=== PATIENT | male | born 1960 | race Caucasian/White ===

== ENCOUNTER 2019-05-27 20:11 | Inpatient (IN) ==
[2019-05-27] MEDS ORDERED: ZOFRAN IV ONE (20:24)
[2019-05-27] MEDS ORDERED: PROTONIX 80 MG in NS 80 ML IV SCH (20:35)
[2019-05-27] MEDS ORDERED: SANDOSTATIN IV ONE (20:38)
[2019-05-27] MEDS ORDERED: VITAMIN K 10 MG in NS 50 ML IV ONE (20:45)
[2019-05-27 20:47] LABS: BASO# 0.04 X1000 (0.0-0.2); BASO% 0.6 % (0.0-0.8); EOS# 0.22 X1000 (0.0-0.7); EOS% 3.1 % (0.0-10.0); HEMATOCRIT 48.7 % (42.0-52.0); HEMOGLOBIN 16.9 g/dL (14.0-18.0); IMM GRAN# 0.03 X1000 (0.0-0.04); IMM GRAN% 0.4 % (0.0-0.5); LYMPH# 2.06 X1000 (1.2-3.4); LYMPH% 28.7 % (20.5-51.1); MCH 32.3 PG (27-31); MCHC 34.7 g/dL (33-37); MCV 93.1 FL (81-99); MPV 11.3 FL (7.4-10.4); NEUT# 4.32 X1000 (1.4-6.5); NEUT% 60.2 % (42.2-75.2); PLT 108 X1000 (130-400); RBC 5.23 XMIL (4.7-6.1); RDW 14.3 % (11.5-14.5); WBC 7.17 X1000 (4.8-10.8)
--- NOTE | 2019-05-27 20:55 | PROVIDER DOCUMENTATION ---
HPI-General Adult - General Chief Complaint: GI Bleed Stated Complaint: GI Bleed Time Seen by Provider: 05/27/19 20:30 Source: patient, RN/MD, EMS Allergies/Adverse Reactions: Patient Allergies Allergy/AdvReac Type Severity Reaction Status Date / Time No Known Allergies Allergy Verified 05/27/19 20:37 Home Medications: Home Medication List Medication Instructions Recorded Confirmed Last Taken Type Amitriptyline [Elavil] 25 mg PO QPM 11/21/17 05/27/19 05/27/19 History Cholecalciferol (Vitamin D3) 1 cap PO DAILY 11/21/17 05/27/19 05/27/19 History [Vitamin D3] Gabapentin 400 mg PO TID 11/21/17 05/27/19 05/27/19 History Hydrocodone/Acetaminophen [[place] 1 tab PO Q6HR 11/21/17 05/27/19 05/27/19 History 10-325 Tablet] Insulin Glargine [Lantus] 80 units SQ QAM 11/21/17 05/27/19 05/27/19 History Magnesium 500 mg PO BID 11/21/17 05/27/19 05/27/19 History Metformin [Glucophage] 1,000 mg PO BID 11/21/17 05/27/19 05/27/19 History Metoclopramide [Reglan] 5 mg PO TID 11/21/17 05/27/19 05/27/19 History Multivitamin/Iron/Folic Acid 1 tab PO DAILY 11/21/17 05/27/19 05/27/19 History [Centrum Adults Tablet] Nadolol 20 mg PO QAM 11/21/17 05/27/19 05/27/19 History Omeprazole [Prilosec] 40 mg PO QAM 11/21/17 05/27/19 05/27/19 History Spironolactone [Aldactone] 25 mg PO QHS 11/21/17 05/27/19 05/27/19 History Albuterol 2.5MG/Ipratrop 0.5MG 3 ml INH RTQ4H #180 neb 11/23/17 05/27/19 05/27/19 Rx [Duoneb (A & A)] Furosemide [Lasix] 20 mg PO DAILY #30 tab 11/23/17 05/27/19 05/27/19 Rx Metoprolol [Lopressor] 25 mg PO Q12H tablet 11/23/17 05/27/19 05/27/19 Rx Baclofen 10 mg PO TID 03/08/18 05/27/19 05/27/19 History Ondansetron Odt [Zofran 4 mg Odt] 4 mg PO Q6H PRN PRN #20 tab 04/22/19 05/27/19 05/27/19 Rx - History of Present Illness -Gen Adult Nature of Presenting Problems: This is a 59yo male with PMH of HERNANDEZ, GI bleeding, esophageal varices who presents with CC of vomiting up blood. The patient reports approximately 30- 35min he vomited up pure blood. The patient reports that he took his meds and laid down and then started to vomit up blood. The patient reports abdominal pain as well as nausea. He denies chest pain. He denies being on a blood thinner or taking ibuprofen. Review of Systems - Adult - REVIEW OF SYSTEMS - ADULT Constitutional: reports: no symptoms reported. denies: fever Eyes: reports: no symptoms reported Ears, Nose, Mouth & Throat: reports: no symptoms reported Cardiovascular: reports: no symptoms reported. denies: chest pain Respiratory: reports: no symptoms reported Gastrointestinal: reports: abdominal pain, hematemesis, nausea, vomiting Genitourinary: reports: no symptoms reported Musculoskeletal: reports: no symptoms reported Integumentary: reports: no symptoms reported Neurological: reports: no symptoms reported Psychiatric: reports: no symptoms reported Endocrine: reports: no symptoms reported Hematologic/Lymphatic: reports: other (hx of GI bleed) Allergic/Immunologic: reports: no symptoms reported Past History - Adult - PAST MEDICAL HISTORY-ADULT Review of Records: reports: Old Records Reviewed Major Childhood Illnesses: reports: denies history Cardiovascular: reports: HTN, hyperlipidemia. denies: cardiac disease, CAD, CHF Respiratory: reports: COPD, sleep apnea Gastrointestinal: reports: hepatitis (nonalcoholic), other (cirrhosis of liver) Obstetrical/Gynecological: reports: denies history Genitourinary: reports: kidney stones Musculoskeletal: reports: denies history Neurological: reports: TIA Endocrine/Immune: reports: Diabetes Other Conditions: reports: denies history - PRIOR SURGERIES/PROCEDURES Surgical/Procedure History: reports: appendectomy, cholecystectomy, tonsillectomy, other (sleep apnea, carpal tunnel) - PRIOR HOSPITALIZATIONS Prior Hospitalizations: reports: for other non-related - IMMUNIZATION STATUS Childhood Immunizations: See Nurse Assessment Flu Vaccine: See Nurse Assessment - FAMILY HISTORY Family History: reviewed, not pertinent Physical Exam-General - CONSTITUTIONAL General Appearance: severe distress, lethargic, slow to respond - EYES Eyes: negative: conjuctival exudate, photophobia, scleral icterus - HEAD, EARS, NOSE, MOUTH & THROAT HENMT: normocephalic/atraumatic, moist mucous membranes - RESPIRATORY Respiratory: normal breath sounds - CARDIOVASCULAR Cardiovascular: no edema, tachycardia - GASTROINTESTINAL (ABDOMEN) Abdominal Exam: soft, tenderness (epigastric) - SKIN Integumentary: normal color - NEUROLOGIC Neurologic: grossly normal - PSYCHIATRIC Psych/Mental Status: other (blunted and anxious.) Progress - PLAN OF CARE/RESULTS Progress/Plan/Lab Results: Vital Signs - 8 hr 05/27/19 20:16 Temperature 97.9 F Pulse Rate 127 H Respiratory Rate 24 Blood Pressure 155/93 O2 Sat by Pulse Oximetry 90 L 05/27/19 20:23 Gastric Occult Blood - Final Emesis Laboratory Results - last 24 hr 05/27/19 20:35 WBC 7.17 RBC 5.23 Hgb 16.9 Hct 48.7 MCV 93.1 MCH 32.3 H MCHC 34.7 RDW Std Deviation 14.3 Plt Count 108 L MPV 11.3 H Immature Gran % (Auto) 0.4 Neut % (Auto) 60.2 Lymph % (Auto) 28.7 [place] % (Auto) 7.0 Eos % (Auto) 3.1 Baso % (Auto) 0.6 Immature Gran # (Auto) 0.03 Neut # (Auto) 4.32 Lymph # (Auto) 2.06 [place] # (Auto) 0.50 Eos # (Auto) 0.22 Baso # (Auto) 0.04 Orders Category Date Time Status Saline Loc DIRECTED Care 05/27/19 20:46 Ordered NPO Diet 05/27/19 20:46 Ordered AMYLASE [CHEM] Stat Lab 05/27/19 20:46 Uncollected CBC WITH DIFF [HEME] Stat Lab 05/27/19 20:42 Ordered CBC WITH ELECTRONIC DIFF [HEME] Stat Lab 05/27/19 20:46 Uncollected COMPREHENSIVE METABOLIC PANEL [CHEM] Stat Lab 05/27/19 20:42 Ordered COMPREHENSIVE METABOLIC PANEL [CHEM] Stat Lab 05/27/19 20:46 Uncollected LACTATE, PLASMA [CHEM] Stat Lab 05/27/19 20:46 Uncollected LIPASE [CHEM] Stat Lab 05/27/19 20:46 Uncollected OCCULT BLOOD NON-FECES Stat Lab 05/27/19 20:23 Completed PRO B-NATRIURETIC PEPTIDE Stat Lab 05/27/19 20:42 Ordered PROTIME WITH INR [COAG] Stat Lab 05/27/19 20:47 Uncollected PTT [COAG] Stat Lab 05/27/19 20:47 Uncollected TYPE & SCREEN [BBK] Stat Lab 05/27/19 20:35 Received 0.9% Sodium Chloride Inj [Ns] 80 ml Med 05/27/19 20:35 Ordered Pantoprazole [Protonix] 80 mg IV 10 mls/hr 0.9% Sodium Chloride Inj [Ns] 80 ml Med 05/27/19 21:00 Active Pantoprazole [Protonix] 80 mg IV 10 mls/hr Dextrose 5%-Water Inj [D5w] 100 ml Med 05/27/19 20:45 Ordered Octreotide Acetate [Sandostatin] 500 microgm IV 10 mls/hr Dextrose 5%-Water Inj [D5w] 100 ml Med 05/27/19 21:00 Active Octreotide Acetate [Sandostatin] 500 microgm IV 10 mls/hr Octreotide Acetate [Sandostatin] Med 05/27/19 20:38 Discontinued 50 microgm IV NOW ONE Ondansetron [Zofran] Med 05/27/19 20:24 Discontinued 4 mg IV NOW ONE Phytonadione [Vitamin K] 10 mg Med 05/27/19 20:45 Ordered 0.9% Sodium Chloride Inj [Ns] 50 ml IV NOW Result Diagrams: 05/31/19 07:34 05/31/19 07:34 - REASSESSMENT Reassessment #1 Status: other (Discussed case with Dr. Zamorano with the GI team. Given persistant bloody vomit will plan for EGD this evening. BP still stable in the 140s. EBL about 1.5L total, type and cross completed. Discussed with warehouse incentive selector who is mobilizing EGD team. Discussed case with Dr. Woodson hospitalist who has accepted the patient for ICU care.) Departure - Departure Date of Disposition Decision: 05/27/19 Time of Disposition Decision: 21:25 DIAGNOSIS: Upper GI bleed, Tachycardia, Varices of esophagus determined by endoscopy Disposition: ADMITTED INPATIENT 09 Certified Medical Emergency: Emergent Condition: Serious - Critical Care Note This patient required my direct & personal management of CC.: Yes Attestation - Physician/ JENSEN Attestation Patient care was provided by Advanced Practice Provider:: No The physician spent face to face time with patient:: Yes Advanced Practice Provider documentation review:: Supervising physician onsite and consulted in the evaluation and care of this patient. The physician did have a face to face encounter with the patient.
[2019-05-27] MEDS ORDERED: COMPAZINE IV ONE (20:58)
[2019-05-27] MEDS ORDERED: SANDOSTATIN 500 MICROGM in D5W 100 ML IV ONE (21:00)
[2019-05-27] MEDS ORDERED: PROTONIX 80 MG in NS 80 ML IV ONE (21:00)
[2019-05-27 21:02] LABS: INR 1.01; PROTIME 13.4 Seconds (11.0-16.0)
[2019-05-27 21:03] LABS: PTT 25.7 Seconds (22.3-41.8)
[2019-05-27] MEDS ORDERED: ROCEPHIN 1 GM in NS 50 ML IV ONE (21:03)
[2019-05-27 21:11] LABS: AGAP 15; ALBUMIN 3.4 g/dL (3.5-5.0); ALKALINE PHOSPHATASE 76 U/L (32-122); BUN 12 mg/dL (8-22); CALCIUM 9.7 mg/dL (8.8-10.2); CHLORIDE 102 mmol/L (98-107); COSMO 291; CREATININE 0.7 mg/dL (0.7-1.2); ESTIMATED GFR > 60; GLUCOSE 313 mg/dL (70-104); GOT 55 U/L (10-34); GPT 41 U/L (10-44); POTASSIUM 4.6 mmol/L (3.5-5.1); SODIUM 140 mmol/L (136-145); TCO2 23 mmol/L (25-35); TOTAL BILIRUBIN 0.81 mg/dL (0.20-1.00); TOTAL PROTEIN 6.9 g/dL (6.3-8.3)
[2019-05-27 21:16] LABS: AMYLASE 34 U/L (20-200); LIPASE 27 U/L (13-60)
--- NOTE | 2019-05-27 21:21 | EKG Report ---
Test Performed on : 05/27/2019 8:17:42 PM Test Reason : GI BLEED Blood Pressure : / mmHG Vent. Rate : 123 BPM Atrial Rate : 123 BPM P-R Int : 140 ms QRS Dur : 078 ms QT Int : 322 ms P-R-T Axes : 049 067 054 degrees QTc Int : 460 ms Sinus tachycardia. Otherwise normal ECG When compared with ECG of 22-APR-2019 18:44, (Unconfirmed) Vent. rate has increased BY 41 BPM Unconfirmed Result
[2019-05-27] MEDS ORDERED: AMIDATE ONE (22:03)
[2019-05-27] MEDS ORDERED: XYLOCAINE-MPF 2% ONE (22:06)
[2019-05-27] MEDS ORDERED: QUELICIN (DOSE) ONE (22:06)
[2019-05-27] MEDS ORDERED: ZEMURON ONE (22:30)
--- NOTE | 2019-05-27 22:33 | HISTORY AND PHYSICAL ---
PRIMARY CARE PHYSICIAN: Aram Stock MD CHIEF COMPLAINT: Throwing up blood. HISTORY OF PRESENTING ILLNESS: This is a 59-year-old male with a history of HERNANDEZ cirrhosis, diabetes mellitus type 2, hypertension who had presented to emergency department with 1-day history of having gross hematemesis. The patient states he had multiple bouts and was not feeling well. He was evaluated in the emergency department. He continued to have hematemesis. His case was discussed with GI, and the patient apparently will undergo an emergent endoscopy. At the time of my examination, patient denied any fever, chills, chest pain, shortness of breath but complained of not feeling well. PAST MEDICAL HISTORY: Includes HERNANDEZ cirrhosis, diabetes mellitus type 2, esophageal varices, hypertension, sleep apnea. PAST SURGICAL HISTORY: Cholecystectomy, carpal tunnel surgery, tonsillectomy. ALLERGIES: No known drug allergies. CURRENT MEDICATIONS: Include DuoNebs q.4 hours, Elavil 25 mg p.o. q. p.m., baclofen 10 mg p.o. t.i.d., Lasix 20 mg p.o. daily, gabapentin 400 one p.o. t.i.d., [place] 10/325 one p.o. q.6 hours, Lantus 80 units subcutaneous q.a.m., metformin 1000 mg p.o. b.i.d., Reglan 5 mg p.o. t.i.d., metoprolol 25 mg p.o. q.12 hours, omeprazole 40 mg p.o. q.a.m., spironolactone 25 mg p.o. at bedtime. SOCIAL HISTORY: He is a former smoker. Denies any history of alcohol or illicit drug use. FAMILY HISTORY: No history of coronary disease. REVIEW OF SYSTEMS: Fourteen-point review of systems listed as in HPI. Other systems negative. PHYSICAL EXAMINATION: GENERAL: Cooperative, friendly obese male. He is without any respiratory distress. VITAL SIGNS: Temperature 97.9 degrees, pulse 127, respirations 24, blood pressure 155/93. HEENT: Atraumatic, normocephalic. Extraocular movements intact. PERRLA. NECK: No masses. CHEST: Clear to auscultation. CARDIOVASCULAR: Regular rate and rhythm. ABDOMEN: Soft, obese, positive bowel sounds. EXTREMITIES: Trace edema. NEUROLOGIC: He is awake, alert, oriented x3. GENITOURINARY: No bladder distention. SKIN: Warm. LABORATORIES AND STUDIES: WBC 7.17, hemoglobin 16.9, hematocrit 48.7, platelets 108,000. Sodium 140, potassium 4.6, chloride 102, CO2 23, BUN is 12, creatinine 0.7, glucose is 313. ASSESSMENT: This is a 59-year-old obese male with a history of non-alcoholic steatohepatitis cirrhosis, esophageal varices, diabetes mellitus type 2, and hypertension who presented to the emergency department with a 1-day history of throwing up of gross blood. He apparently continued to have episodes of hematemesis in the ER. His case was discussed with Gastroenterology and subsequently underwent emergent endoscopy. 1. Upper gastrointestinal bleed. 2. Non-alcoholic steatohepatitis cirrhosis. 3. Suspected esophageal varices. 4. Diabetes mellitus type 2. 5. Hypertension. PLAN: 1. We will admit patient to ICU. 2. We will keep patient n.p.o. 3. GI was already consulted. 4. We will continue patient on a pantoprazole drip and also Sandostatin. 5. Continue with IV fluids and type and cross 2 units of packed red blood cells. 6. We will monitor blood glucose and continue patient on sliding scale insulin regimen. 7. Monitor blood pressure. Resume antihypertensive agents. 8. We will put patient on DVT prophylaxis with SCD. 9. The patient's condition is guarded. 10. We will continue to follow and reassess. Make further recommendations based on patient's clinical course. cc: Brendon Woodson MD MTDD
[2019-05-27] MEDS ORDERED: SODIUM CHLORIDE 0.9% 10 ML ONE (22:34)
[2019-05-27] MEDS ORDERED: NEO-SYNEPHRINE ONE (22:34)
[2019-05-27] MEDS ORDERED: ROBINUL ONE (22:40)
[2019-05-27] MEDS ORDERED: REGLAN ONE (22:41)
[2019-05-27] MEDS ORDERED: BRIDION ONE (22:50)
[2019-05-27] MEDS ORDERED: PHENERGAN ONE (23:14)
[2019-05-27] MEDS ORDERED: DILAUDID ONE (23:56)
[2019-05-28] MEDS ORDERED: SODIUM CHLORIDE 0.9% INJ PRN (00:46)
[2019-05-28] MEDS ORDERED: PHENERGAN IV PRN (00:46)
[2019-05-28] MEDS: NS 1,000 ML IV SCH ×4 (00:51→16:59)
[2019-05-28 01:55] LABS: HEMATOCRIT 47.7 % (42.0-52.0); HEMOGLOBIN 15.9 g/dL (14.0-18.0); MCH 31.6 PG (27-31); MCHC 33.3 g/dL (33-37); MCV 94.8 FL (81-99); MPV 10.9 FL (7.4-10.4); RBC 5.03 XMIL (4.7-6.1); RDW 14.2 % (11.5-14.5); WBC 8.32 X1000 (4.8-10.8)
[2019-05-28] MEDS: REGLAN IV SCH ×4 (03:45→23:00)
[2019-05-28] MEDS: MORPHINE IV PRN ×6 (03:45→23:26)
[2019-05-28 04:44] LABS: INR 1.09; PROTIME 14.3 Seconds (11.0-16.0)
[2019-05-28 04:45] LABS: BASO# 0.03 X1000 (0.0-0.2); BASO% 0.3 % (0.0-0.8); EOS# 0.01 X1000 (0.0-0.7); EOS% 0.1 % (0.0-10.0); HEMATOCRIT 46.2 % (42.0-52.0); HEMOGLOBIN 15.7 g/dL (14.0-18.0); IMM GRAN# 0.02 X1000 (0.0-0.04); IMM GRAN% 0.2 % (0.0-0.5); LYMPH# 0.99 X1000 (1.2-3.4); LYMPH% 11.3 % (20.5-51.1); MCH 32.2 PG (27-31); MCV 94.9 FL (81-99); MONO# 0.19 X1000 (0.11-0.59); MONO% 2.2 % (1.7-9.3); MPV 12.1 FL (7.4-10.4); NEUT# 7.51 X1000 (1.4-6.5); NEUT% 85.9 % (42.2-75.2); PLT 84 X1000 (130-400); PTT 34.8 Seconds (22.3-41.8); RBC 4.87 XMIL (4.7-6.1); WBC 8.75 X1000 (4.8-10.8)
[2019-05-28 05:10] LABS: AGAP 12; ALB/GLOB RATIO 0.9; ALBUMIN 3.3 g/dL (3.5-5.0); ALKALINE PHOSPHATASE 64 U/L (32-122); BUN 17 mg/dL (8-22); CALCIUM 8.9 mg/dL (8.8-10.2); CHLORIDE 101 mmol/L (98-107); COSMO 286; CREATININE 0.8 mg/dL (0.7-1.2); ESTIMATED GFR > 60; GLUCOSE 354 mg/dL (70-104); GOT 60 U/L (10-34); GPT 44 U/L (10-44); SODIUM 135 mmol/L (136-145); TCO2 22 mmol/L (25-35); TOTAL PROTEIN 6.8 g/dL (6.3-8.3)
[2019-05-28] MEDS: SANDOSTATIN 500 MICROGM in D5W 100 ML IV SCH ×3 (06:03→15:36)
[2019-05-28] MEDS: HUMULIN R SUBQ SCH ×4 (06:03→21:23)
[2019-05-28] MEDS ORDERED: PROTONIX 80 MG in NS 80 ML IV SCH (07:40)
--- NOTE | 2019-05-28 11:16 | ENDOSCOPY OPERATIVE NOTE ---
[facility] ENDOSCOPY OPERATIVE NOTE , PATIENT: Speedy Friedman ADMISSION DATE: MR#: [id number] : 1960 ACCT #: EGD PROCEDURE REPORT PROCEDURE DATE: 05/27/2019 SURGEON: Corey Zamorano MD STATUS: inpatient READING ASSISTANT: Jose Eduardo Doan and Rayne Graham PREOPERATIVE DIAGNOSIS: The patient is a 59 yr old male here for an EGD due to Hematemesis, HERNANDEZ Cir rhosis, Diabetes, Obesity. PROCEDURE PERFORMED: EGD w/ band ligation of varices MEDICATIONS: Per Anesthesia TOPICAL ANESTHETIC: none CONSENT: The patient understands the risks and benefits of the procedure and understands that these r isks include, but are not limited to: sedation, allergic reaction, infection, perforation and/or bleeding. Alternative means of evaluation and treatment include, among others: physical exam, x-rays, and/or surgical intervention. The patient elects to proceed with this endoscopic procedure. HISORY AND PHYSICAL: 05/27/2019 DESCRIPTION OF PROCEDURE: During intra-op preparation period all mechanical and medical equipment was checked for proper function. Hand hygiene and appropriate measures for infection prevention was taken. After the risks, benefits and alternatives of the procedure were thoroughly explained, Informed consent was verified, confirmed and timeout was successfully executed by the treatment team. The patient was anesthetized with topical anesthesia and the NF53-q22 ([id number]) endoscope was introduced through the mouth and advanced to the second portion of the duoden um. Retroflexion was performed in the stomach and revealed Food and blood clots in the gastric fundus. The gastroscop e was then slowly withdrawn and removed. ESOPHAGUS: There were 4 columns of medium sized varices in the lower third of the esophagus and middl e third esophagus. There was evidence of a red marielos sign. Complete hemostasis was achieved by placing. Z line at 42 c ms. STOMACH: Food and blood clots in the stomach-large amount-partially evacuated. DUODENUM: The duodenal mucosa showed no abnormalities in the duodenal bulb, 2nd part duodenum, and 1s t part duodenum. SPECIMENS REMOVED: No ADVERSE EVENTS: There were no complications. POSTOPERATIVE DIAGNOSIS: 1. There were 4 columns of medium sized esophageal varices and varices in the lower third of the esophagus and middle third esophagus; Complete hemostasis was achieved by placing 2. Z line at 42 cms 3. Food and blood clots in the stomach-large amount-partially evacuated 4. The duodenal mucosa showed no abnormalities in the duodenal bulb, 2nd part duodenum, and 1st part duodenum RECOMMENDATIONS: Protonix drip for 72 hours Octreotide drip for 72 hours Watch CBC and Transfuse 1unit PRBC if Hb<7g/dl Reglan 10 mg IV Q 6 hours for Gastroparesis and hold for side effects like Tardive dyskinesia Continue IV Fluids NPO for now REPEAT EXAM: Return in 6 weeks for EGD. for variceal banding Corey Zamorano MD eSigned: Corey Zamorano MD 05/27/2019 10:46 PM cc: PATIENT NAME: Speedy Friedman MR#: [id number]
[2019-05-28 12:41] LABS: HEMATOCRIT 43.1 % (42.0-52.0); MCH 31.2 PG (27-31); MCHC 32.5 g/dL (33-37); MPV 11.1 FL (7.4-10.4); RBC 4.49 XMIL (4.7-6.1); RDW 14.2 % (11.5-14.5); WBC 8.78 X1000 (4.8-10.8)
--- NOTE | 2019-05-28 17:44 | PROGRESS NOTE ---
DATE: 05/28/2019 Mr. Friedman admitted with hematemesis. Patient had history of cirrhosis of the liver due to nonalcoholic steatohepatitis with esophageal varices. The patient underwent EGD and band ligation of the varices. It did clinically look like it did stop his bleeding. Patient admitted to ICU. The patient is doing better. He denied any chest pain or palpitations. No fever or chills. The patient does have cough with scanty sputum production. Patient does have pain in the knee, at times in the lower back. His past medical history and medication noted. Admission history physical and operative note reviewed. OBJECTIVE: Vital Signs: Noted. Blood pressure reviewed. Neck: Supple. No JVD. Lungs: Bibasilar crepitations. Heart: S1 and S2 heard. Abdomen: Soft, globular. Bowel sounds present. Extremities: No cyanosis, clubbing. No acute DVT. 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 LABORATORY DATA: Patient's admission lab data noted. Repeat hemoglobin 14, hematocrit 43.1, WBC count 8.78, platelet count was 79,000. PT/INR 1.09, PTT was 34.8. Electrolytes result reviewed. PROBLEMS: Include 1. Upper gastrointestinal bleed due to variceal bleed status post band ligation. 2. Cirrhosis of the liver. 3. Morbid obesity. 4. Diabetes mellitus. 5. Osteoarthritis. 6. Chronic pain. 7. Hyperkalemia. Overall plan discussed with the patient and also with his and they are in agreement. cc: Aram Stock MD
[2019-05-28 18:35] LABS: HEMATOCRIT 41.5 % (42.0-52.0); HEMOGLOBIN 13.6 g/dL (14.0-18.0); MCH 31.5 PG (27-31); MCHC 32.8 g/dL (33-37); MCV 96.1 FL (81-99); MPV 11.1 FL (7.4-10.4); RBC 4.32 XMIL (4.7-6.1); RDW 13.9 % (11.5-14.5); WBC 9.1 X1000 (4.8-10.8)
[2019-05-28] MEDS: DUONEB (A & A) INH PRN (21:58)
--- NOTE | 2019-05-29 01:06 | PROVIDER PROGRESS NOTE ---
Progress Note PROGRESS NOTE 05/28/2019 LATE ENTRY S: No further hematemesis, N/V, abdominal pain. Family at bedside O: Last Vital Signs Temp 98.1 F 05/29/19 00:00 Pulse 84 05/29/19 00:00 Resp 22 05/29/19 00:00 BP 127/68 05/29/19 00:00 Pulse Ox 93 L 05/29/19 00:00 Height 5 ft 8 in Weight 317 lb 3.2 oz GEN: awake, alert NAD HEENT: anicteric MMM NECK: supple, no JVD PULM: CTAB, no wheezing CV: RRR, no murmur ABD: obese, soft NT/ND, NABS EXT: no cce NEURO: AAOx3, no asterixis LABS: 05/28/19 05/28/19 05/28/19 01:18 04:00 04:00 WBC 8.32 Hgb 15.9 Plt Count 82 L INR 1.09 Sodium 135 L Potassium 6.0 H* D Carbon Dioxide 22 L BUN 17 Creatinine 0.8 Total Bilirubin 1.00 AST 60 H ALT 44 Alkaline Phosphatase 64 EGD 05/27/2019 4 columns of esophageal varices with red marielos signs s/p EVL Blood and clots found in the gastric body normal duodenum A/P: Mr. Speedy Friedman is a 59 year man with HERNANDEZ cirrhosis, DM2, PILI, HTN, and morbid obesity who presented with bleeding esophageal varices s/p EGD with EVL on 05/[address] Zamorano. His hgb has downtrended, but not anemic. He is on octreotide drip and PPI IV BID. Notable hyperkalemia; 5.3 on recheck. # UGIB from bleeding esophageal varices - continue octreotide drip - transition PPI to PO once daily for now - clear liquid diet - trending H/H daily - started CTX for SBP prophylaxis in setting of GI bleeding # Decompensated HERNANDEZ cirrhosis - Cirrhosis: trend LFTs daily - Ascites: none on exam; low Na diet - EV: as above - PSE screening: none prior - HCC screening: CT A/P in 04/2019 negative for hepatoma - OLT: low MELD - IMM: recommend outpatient vaccination for HAV/HBV # Hyperkalemia: correct as per primary team Will follow with you. Please call with questions
[2019-05-29 01:17] LABS: HEMATOCRIT 40.2 % (42.0-52.0); HEMOGLOBIN 13.3 g/dL (14.0-18.0); MCH 31.6 PG (27-31); MCHC 33.1 g/dL (33-37); MCV 95.5 FL (81-99); MPV 10.6 FL (7.4-10.4); RBC 4.21 XMIL (4.7-6.1); RDW 13.9 % (11.5-14.5); WBC 9.39 X1000 (4.8-10.8)
[2019-05-29] MEDS: ROCEPHIN 1 GM in NS 50 ML IV SCH (02:13)
[2019-05-29] MEDS: SANDOSTATIN 500 MICROGM in D5W 100 ML IV SCH (02:47)
[2019-05-29] MEDS: MORPHINE IV PRN ×4 (02:47→16:36)
[2019-05-29 06:34] LABS: INR 1.11; PROTIME 14.5 Seconds (11.0-16.0)
[2019-05-29] MEDS: HUMULIN R SUBQ SCH ×4 (06:42→21:01)
[2019-05-29] MEDS: PROTONIX PO SCH (06:42)
[2019-05-29 06:51] LABS: AGAP 11; ALBUMIN 3.2 g/dL (3.5-5.0); ALKALINE PHOSPHATASE 53 U/L (32-122); BUN 16 mg/dL (8-22); CALCIUM 7.8 mg/dL (8.8-10.2); CHLORIDE 101 mmol/L (98-107); COSMO 284; CREATININE 0.6 mg/dL (0.7-1.2); ESTIMATED GFR > 60; GLUCOSE 196 mg/dL (70-104); GOT 65 U/L (10-34); GPT 43 U/L (10-44); POTASSIUM 4.3 mmol/L (3.5-5.1); SODIUM 139 mmol/L (136-145); TCO2 27 mmol/L (25-35); TOTAL BILIRUBIN 0.73 mg/dL (0.20-1.00); TOTAL PROTEIN 6.5 g/dL (6.3-8.3)
[2019-05-29 07:08] LABS: BASO# 0.03 X1000 (0.0-0.2); BASO% 0.4 % (0.0-0.8); EOS# 0.19 X1000 (0.0-0.7); EOS% 2.4 % (0.0-10.0); HEMATOCRIT 42.3 % (42.0-52.0); HEMOGLOBIN 14.1 g/dL (14.0-18.0); IMM GRAN# 0.02 X1000 (0.0-0.04); IMM GRAN% 0.2 % (0.0-0.5); LYMPH# 1.67 X1000 (1.2-3.4); LYMPH% 20.7 % (20.5-51.1); MCH 31.9 PG (27-31); MCHC 33.3 g/dL (33-37); MCV 95.7 FL (81-99); MONO# 0.56 X1000 (0.11-0.59); MPV 10.5 FL (7.4-10.4); NEUT# 5.58 X1000 (1.4-6.5); NEUT% 69.3 % (42.2-75.2); PLT 81 X1000 (130-400); RBC 4.42 XMIL (4.7-6.1); WBC 8.05 X1000 (4.8-10.8)
--- NOTE | 2019-05-29 07:40 | PROGRESS NOTE ---
DATE: 05/29/2019 SUBJECTIVE: Mr. Friedman is doing fair. The patient does have nausea, but no hematemesis or vomiting. No high-grade fever or chills. The patient did have some wheezing and shortness of breath yesterday. The patient was given oxygen and nebulizer treatment, and it did help. No diarrhea or melena. No typical chest pain or palpitations. The patient did have some abdominal distention and known case of osteoarthritis of the knee, nonalcoholic cirrhosis of the liver with esophageal varices. Recent GI bleed. Morbid obesity. Diabetes mellitus. OBJECTIVE: His vital signs as noted.Neck: Supple. No JVD. Lungs: Bibasilar crepitations and occasional wheezing. Heart: S1 and S2 heard. Abdomen: Soft and globular. Bowel sounds present. Extremities: No cyanosis or clubbing. No acute DVT. 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 LABORATORY DATA: The patient's lab data done today, hemoglobin 14.1 and hematocrit 42.3. WBC count 8.05. Platelet count was 81,000. The PT/INR 1.11. Electrolytes were fairly benign. CONSIDERATION: Upper gastrointestinal bleed secondary to variceal bleed status post band ligation. The patient's other problems includes COPD, thrombocytopenia most likely due to splenomegaly, hyperkalemia improved, morbid obesity, osteoarthritis, and chronic pain. Labs and medication noted. We will continue current treatment and close observation. cc: Aram Stock MD
[2019-05-29] MEDS: NS 1,000 ML IV SCH (08:40)
[2019-05-29] MEDS: DUONEB (A & A) INH PRN ×3 (09:35→21:21)
[2019-05-29] MEDS: CORGARD PO SCH (11:32)
--- NOTE | 2019-05-29 12:14 | GASTROENTEROLOGY PROGRESS NOTE ---
DATE: 05/29/2019 SUBJECTIVE: Mr. Friedman 59 year old male resting in bed. Family at the bedside. He has denied any nausea or vomiting but has occasional productive cough, denied noticing any blood in his sputum. OBJECTIVE: Vital Signs: Temperature 97.9 degrees, pulse is 84, respirations 15, blood pressure is 125/87, oxygen saturation ids 96%. He is on 6 L nasal cannula. Weight is 316 pounds. BMI is 48.2 kg/m2. General: He is morbidly obese, AO x 3, and in no acute distress. HEENT: Pale conjunctivae. No icterus. PERRL. Neck: Supple. Lungs: Clear to auscultation. Cardiovascular: Regular rate and rhythm. Abdomen: Obese, distended, soft. Generalized abdominal tenderness all over. Hypoactive bowel sounds heard in all 4 quadrants. Extremities: No cyanosis, clubbing, or edema noted. Labs: WBCs 8.05, RBCs 4.42, hemoglobin is 14.1, hematocrit is 42.3, platelet count is 81,000. Sodium is 139, potassium is 4.3, chloride is 101, carbon dioxide is 27, anion gap is 11, BUN is 16, creatinine is 0.6, glucose is 196, calcium is 7.8. Total bilirubin is 0.73, AST is 65, ALT is 43. His albumin is 3.2. Gastric occult blood positive. ASSESSMENT AND PLAN: 1. Gastrointestinal bleed. 2. HERNANDEZ cirrhosis. 3. Gastroesophageal reflux disease. 4. Diabetes 2. 5. Hypertension. PLAN: Patient had bleeding esophageal varices s/p EGD with band ligation of varices done on 05/27, currently he is hemodynamically stable with H & H 14.1 and 42.3. Patient was on IV Octreotide, it has been discontinued and he is now on Nadolol 20 mg PO daily, IV Protonix 40 mg daily for his GI bleed. We will continue to monitor his CBC and BMP, and follow the plan of care per primary care provider. This plan was discussed with Dr. Rivers. Please call us with any further questions or concerns. Dictated by IDALIA Oliver for Edison Rivers MD cc: Aram Stock MD Physician Attestation I have seen and examined the patient. I have discussed and reviewed the the note by Reyna FRIEDMAN and agree with findings and plan as documented. In brief, Mr. Speedy Friedman is a 59 year man with HERNANDEZ cirrhosis, DM2, PILI, HTN, and morbid obesity who presented with bleeding esophageal varices s/p EGD with EVL on 05/[address] Zamorano. His hgb has downtrended, but now stable without further bleeding. No PSE. Unable to appreciate ascites. Will advance diet and transition octreotide drip to home nadolol. Will titrated for HR 55-60. Stop IVFs. Continue SBP ppx for 5 days. Will need repeat EGD in 2-3 weeks per banding protocol. # Bleeding esophageal varices # Decompensated HERNANDEZ cirrhosis # H/o ascites # Hyperkalemia: resolved # Morbid obesity # [id number] Will follow with you. Please call with questions MTDD
[2019-05-30] MEDS: ROCEPHIN 1 GM in NS 50 ML IV SCH (01:08)
[2019-05-30] MEDS: MORPHINE IV PRN ×5 (01:40→20:05)
[2019-05-30] MEDS: DUONEB (A & A) INH PRN ×4 (03:20→21:33)
[2019-05-30 04:37] LABS: ALLEN TEST YES; BE 3.7 mmoll (-3.0-3.0); BLOOD TYPE ARTERIAL; HCO3-(ACT) 27.7 mmoll (20.0-26.0); METHB 0.8 % (0.0-1.5); MODALITY CANNULA; O2(CT) 17.8 mL/dL (15.0-23.0); O2HB 92.8 % (95.0-99.0); PCO2(98.6) 43 mmHg (35-45); PO2(98.6) 70 mmHg (60-100); SAMPLE BLOOD; SAO2 95.2 % (95.0-100.0); THB 13.6 g/dL (11.5-17.4); pH(98.6) 7.43 (7.35-7.45)
[2019-05-30] MEDS: ZOFRAN IV PRN (04:49)
[2019-05-30] MEDS: PROTONIX PO SCH (06:13)
[2019-05-30] MEDS: HUMULIN R SUBQ SCH ×4 (06:17→20:35)
[2019-05-30 07:12] LABS: BASO# 0.03 X1000 (0.0-0.2); BASO% 0.5 % (0.0-0.8); EOS# 0.17 X1000 (0.0-0.7); EOS% 2.6 % (0.0-10.0); HEMATOCRIT 42.7 % (42.0-52.0); HEMOGLOBIN 13.9 g/dL (14.0-18.0); IMM GRAN# 0.03 X1000 (0.0-0.04); IMM GRAN% 0.5 % (0.0-0.5); LYMPH# 1.54 X1000 (1.2-3.4); LYMPH% 23.8 % (20.5-51.1); MCH 31.6 PG (27-31); MCHC 32.6 g/dL (33-37); MONO# 0.58 X1000 (0.11-0.59); MPV 10.9 FL (7.4-10.4); NEUT# 4.13 X1000 (1.4-6.5); NEUT% 63.6 % (42.2-75.2); PLT 84 X1000 (130-400); RDW 14.3 % (11.5-14.5); WBC 6.48 X1000 (4.8-10.8)
[2019-05-30] MEDS: CORGARD PO SCH (08:20)
[2019-05-30 09:15] LABS: AGAP 10; ALB/GLOB RATIO 1.1; ALBUMIN 3.3 g/dL (3.5-5.0); ALKALINE PHOSPHATASE 56 U/L (32-122); BUN 16 mg/dL (8-22); CALCIUM 8.4 mg/dL (8.8-10.2); CHLORIDE 102 mmol/L (98-107); COSMO 280; CREATININE 0.7 mg/dL (0.7-1.2); ESTIMATED GFR > 60; GLUCOSE 151 mg/dL (70-104); GOT 105 U/L (10-34); GPT 59 U/L (10-44); MAGNESIUM 1.5 mg/dL (1.5-2.7); POTASSIUM 4.3 mmol/L (3.5-5.1); SODIUM 138 mmol/L (136-145); TCO2 26 mmol/L (25-35); TOTAL BILIRUBIN 0.77 mg/dL (0.20-1.00); TOTAL PROTEIN 6.4 g/dL (6.3-8.3)
[2019-05-30] MEDS ORDERED: MAGNESIUM SULFATE 2 GM/S.W.I. 2 GM/50 ML IVPB IV ONE (13:31)
--- NOTE | 2019-05-30 19:28 | GASTROENTEROLOGY PROGRESS NOTE ---
DATE: 05/30/2019 SUBJECTIVE: Mr. Friedman is a 59-year-old male, resting in bed. Family at the bedside. He denies any nausea, vomiting or vomiting blood or black stools. He is feeling better. OBJECTIVE: Vital signs: Temperature 97.4, pulse 66, respirations 18, blood pressure 134/82, oxygen saturation 92% on 3 L NC, weight is 316 pounds and BMI 48.2 kg per meter square. General: He is morbidly obese, AO x 3, and in no acute distress. HEENT: Pale conjunctivae. No icterus. PERRL. Neck: Supple. Lungs: Clear to auscultation in the anterior arcos. Cardiovascular: Regular rate and rhythm. Abdomen: Obese, protuberant, soft. Hypoactive bowel sounds heard in all 4 quadrants. Extremities: No cyanosis, clubbing, or edema noted. Pedal pulses 2+ present bilaterally. Neuro: AO x 3 DIAGNOSTIC STUDIES: WBC 6.48, RBCs 4.40, hemoglobin is 13.9, hematocrit is 42.7, platelet count is 84,000. Sodium is 138, potassium is 4.3, chloride is 102, carbon dioxide is 26, anion gap is 10, BUN is 16, creatinine 0.7, glucose is 151, calcium is 8.4, magnesium 1.55, total bilirubin is 0.77, AST is 105, ALT 59, alkaline phosphatase is 56, albumin is 3.3. IMPRESSION AND PLAN: 1. Gastrointestinal bleed secondary to Esophageal Varices. 2. Nonalcoholic steatohepatitis. 3. Cirrhosis. 4. Gastroesophageal reflux disease. 5. Diabetes, type 2. 6. Hypertension. 7. Morbid obesity. 8. Thrombocytopenia. 9. Elevated Ammonia. 10. Gastroparesis. PLAN: We plan to do a return EGD in 4 to 6 weeks for serial banding of the esophageal varices. We will refer him to [facility] for further management of liver cirrhosis and possible liver transplant evaluation. Patient complained that he was not able to swallow his food well, we changed his diet to pureed diet. We will continue to follow the current plan of care. The patient is on GI prophylaxis, Protonix 40 mg daily for his GI bleed. He is on lactulose 30 mg p.o. b.i.d for his cirrhosis. We have started the patient on nadolol 20 mg QD. We will monitor his heart rate and titrate to heart rate between 55-60. His H & H is 13.9 and 42.7, he is hemodynamically stable. We will continue to monitor his CBC and BMP and also follow the plan of care per PCP. Discussed the risk of obesity, advised him to lose weight, and follow a healthy diet. We have asked him to follow up as an outpatient at our clinic in 4 to 6 weeks once he is discharged from the hospital. This plan was discussed with Dr. Zamorano. Please call us for any further questions or concerns. Dictated by IDALIA Oliver for Corey Zamorano MD cc: MD Aram Bryant MD I have seen and examined the patient myself and I agree with the above plan of care. I have discussed the above plan of care with the patient and family at bedside and all questions were answered. Please call us with any further questions or concerns [email or web address]
[2019-05-30] MEDS: LACTULOSE PO SCH (20:05)
[2019-05-30] MEDS: REGLAN LIQUID PO SCH (23:11)
[2019-05-31] MEDS: MORPHINE IV PRN (02:07)
[2019-05-31] MEDS: ZOFRAN IV PRN ×3 (02:08→16:08)
[2019-05-31] MEDS: ROCEPHIN 1 GM in NS 50 ML IV SCH (02:21)
[2019-05-31] MEDS: PROTONIX PO SCH (06:08)
[2019-05-31] MEDS: HUMULIN R SUBQ SCH ×4 (06:14→21:12)
--- NOTE | 2019-05-31 07:12 | PROGRESS NOTE ---
DATE: 05/31/2019 SUBJECTIVE: Mr. Friedman is doing fair. No active upper GI or lower GI bleeding. The patient does feel weak, gets short of breath very easily. No nausea or vomiting. No typical chest pain. OBJECTIVE: His vital signs noted. Neck is supple. No JVD.Lungs: Bibasilar crepitations. Heart: S1 and S2 heard. Abdomen: Soft, globular. Bowel sounds present. Patient does have distention, some ascites. CREOSOTING ENGINEER: Alert, awake, answering questions fairly well. LABORATORY DATA: Ordered for this morning pending. PROBLEMS: Upper GI bleed due to esophageal varices. The patient does have cirrhosis of the liver, diabetes mellitus, hypertension, osteoarthritis. The patient is eager to go home. I am going to check appropriate labs, resume his insulin in lower dose, continue the rest of the medicine. PLAN: Overall plan discussed with the patient. The patient understood and agreed. cc: Aram Stock MD
[2019-05-31] MEDS ORDERED: NORCO-10 PO SCH (08:00)
[2019-05-31 08:27] LABS: AGAP 12; ALBUMIN 3.1 g/dL (3.5-5.0); ALKALINE PHOSPHATASE 55 U/L (32-122); BUN 14 mg/dL (8-22); CALCIUM 8.5 mg/dL (8.8-10.2); CHLORIDE 98 mmol/L (98-107); COSMO 279; CREATININE 0.7 mg/dL (0.7-1.2); ESTIMATED GFR > 60; GLUCOSE 243 mg/dL (70-104); GOT 61 U/L (10-34); GPT 49 U/L (10-44); POTASSIUM 4.2 mmol/L (3.5-5.1); SODIUM 135 mmol/L (136-145); TCO2 25 mmol/L (25-35); TOTAL BILIRUBIN 0.62 mg/dL (0.20-1.00); TOTAL PROTEIN 6.2 g/dL (6.3-8.3)
[2019-05-31 08:31] LABS: BASO# 0.04 X1000 (0.0-0.2); BASO% 0.8 % (0.0-0.8); EOS# 0.12 X1000 (0.0-0.7); EOS% 2.3 % (0.0-10.0); HEMATOCRIT 40.8 % (42.0-52.0); HEMOGLOBIN 13.7 g/dL (14.0-18.0); IMM GRAN# 0.02 X1000 (0.0-0.04); IMM GRAN% 0.4 % (0.0-0.5); LYMPH# 1.35 X1000 (1.2-3.4); LYMPH% 25.3 % (20.5-51.1); MCH 31.8 PG (27-31); MCHC 33.6 g/dL (33-37); MCV 94.7 FL (81-99); MONO# 0.46 X1000 (0.11-0.59); MONO% 8.6 % (1.7-9.3); MPV 10.9 FL (7.4-10.4); NEUT# 3.34 X1000 (1.4-6.5); NEUT% 62.6 % (42.2-75.2); PLT 82 X1000 (130-400); RBC 4.31 XMIL (4.7-6.1); RDW 13.7 % (11.5-14.5); WBC 5.33 X1000 (4.8-10.8)
[2019-05-31] MEDS: CORGARD PO SCH (10:04)
[2019-05-31] MEDS: MAGNESIUM GLUCONATE PO SCH ×2 (10:05→21:12)
[2019-05-31] MEDS: LANTUS INSULIN SUBQ SCH (10:05)
[2019-05-31] MEDS: LACTULOSE PO SCH ×2 (10:05→21:12)
[2019-05-31] MEDS: REGLAN LIQUID PO SCH ×4 (10:06→21:12)
[2019-05-31] MEDS: VITAMIN D PO SCH (10:13)
[2019-05-31] MEDS: NEURONTIN PO SCH ×3 (10:13→17:52)
[2019-05-31] MEDS: LIORESAL PO SCH ×3 (10:13→17:52)
[2019-05-31] MEDS: CENTRUM TABLET PO SCH (10:14)
[2019-05-31] MEDS: DUONEB (A & A) INH PRN ×2 (10:49→16:15)
--- NOTE | 2019-05-31 14:22 | GASTROENTEROLOGY PROGRESS NOTE ---
DATE: 05/31/2019 SUBJECTIVE: Mr. Friedman 59 year old male sitting on the side of the bed, his at the bedside. He denies any nausea or vomiting, but has some generalized abdominal tenderness. He did have a bowel movement yesterday, which is black and tarry. OBJECTIVE: Vital signs: Temperature 98.5 degrees, pulse is 95, respirations 17, blood pressure 126/69, oxygen saturation 100% on 3 L nasal cannula. His weight is 306 pounds. BMI is 48.2 kg/m2. He is morbidly obese. He is alert and oriented x3. No acute distress. HEENT: Pale conjunctivae. No icterus. PERRL. The neck is supple. Lungs: Clear to auscultation in the anterior arcos. Cardiovascular: Regular rate and rhythm. Abdomen: Obese, distended, soft, tender, hypoactive bowel sounds heard in all 4 quadrants. Extremities: No clubbing, cyanosis or edema noted. Pedal pulses 2+ present bilaterally. Neuro: Alert, oriented x3. LABORATORY DATA: WBCs 5.33, RBC 4.31, hemoglobin 13.7, hematocrit of 40.8, platelet count is 82,000. Sodium 135, potassium 4.2, chloride 98, carbon dioxide 25, anoin gap 12, BUN is 14, creatinine is 0.7, glucose 243, calcium 8.5, total bilirubin 0.62, AST 61, ALT is 49, alkaline phos 55. Ammonia is 90. Albumin is 3.1. IMPRESSION AND PLAN: GI bleed secondary to esophageal varices HERNANDEZ Cirrhosis GERD Diabetes type 2 Morbid obesity Thrombocytopenia PLAN: Patient is on lactulose 30 mL twice a day for his ammonia. He is on Protonix 40 mg daily for his GI bleed. He is also on Rocephin antibiotic 1 g 100 mL/h. We will stop the Rocephin and start him on ciprofloxacin 500 mg twice a day for 3 days and continue if he is discharged. Patient has been asked to follow up in our clinic in 2 to 3 weeks for the serial banding of her esophageal varices. We plan to refer him to [facility] for further management of liver cirrhosis and possible liver transplant evaluation. His hemoglobin 13.7, hematocrit 40.8. He is hemodynamically stable. We also discussed the risk of obesity and advised the patient to lose weight and follow a healthy diet. We will continue to monitor his CBC & BMP, and follow the plan of care per PCP. This plan was discussed with Dr. Rivers. Please call us for any questions or concerns. Dictated by IDALIA Oliver for Edison Rivers MD cc: Aram Stock MD Physician Attestation I have seen and examined the patient. I have discussed and reviewed the the note by Reyna FRIEDMAN and agree with findings and plan as documented. In brief, Mr. Speedy Friedman is a 59 year man with HERNANDEZ cirrhosis, DM2, PILI, HTN, and morbid obesity who presented with bleeding esophageal varices s/p EGD with EV[facility] on 05/[address] Zamorano. His hgb is now stable without further bleeding. No PSE. Unable to appreciate ascites. Heart rate is at goal on nadolol. We can transition to oral ciprofloxacin 500mg PO BID for 3 more days of abx for SBP ppx. He will need repeat EGD with banding in 2-3 weeks per banding protocol. # Bleeding esophageal varices # Decompensated HERNANDEZ cirrhosis # H/o ascites # History of PSE: on lactulose # Hyperkalemia: resolved # Morbid obesity # [id number] Will sign off. Please call with questions. Follow-up with Dr. Lona CHOPRA
[2019-05-31] MEDS ORDERED: ALDACTONE PO SCH (21:00)
[2019-05-31] MEDS ORDERED: ELAVIL PO SCH (21:00)
[2019-05-31] MEDS: CIPRO PO SCH (21:12)
[2019-06-01] MEDS: HUMULIN R SUBQ SCH ×2 (06:14→11:13)
[2019-06-01] MEDS: PROTONIX PO SCH (06:14)
[2019-06-01] MEDS: MORPHINE IV PRN (08:01)
[2019-06-01 08:03] LABS: BASO# 0.04 X1000 (0.0-0.2); BASO% 0.8 % (0.0-0.8); EOS# 0.17 X1000 (0.0-0.7); EOS% 3.3 % (0.0-10.0); HEMATOCRIT 42.1 % (42.0-52.0); HEMOGLOBIN 14.2 g/dL (14.0-18.0); IMM GRAN# 0.03 X1000 (0.0-0.04); IMM GRAN% 0.6 % (0.0-0.5); LYMPH# 1.33 X1000 (1.2-3.4); LYMPH% 26.1 % (20.5-51.1); MCH 31.8 PG (27-31); MCHC 33.7 g/dL (33-37); MCV 94.2 FL (81-99); MONO% 7.8 % (1.7-9.3); MPV 10.8 FL (7.4-10.4); NEUT# 3.13 X1000 (1.4-6.5); NEUT% 61.4 % (42.2-75.2); PLT 94 X1000 (130-400); RBC 4.47 XMIL (4.7-6.1); RDW 13.9 % (11.5-14.5)
[2019-06-01] MEDS: CORGARD PO SCH (08:04)
[2019-06-01] MEDS: CENTRUM TABLET PO SCH (08:04)
[2019-06-01] MEDS: CIPRO PO SCH (08:05)
[2019-06-01] MEDS: REGLAN LIQUID PO SCH (08:05)
[2019-06-01] MEDS: LIORESAL PO SCH (08:05)
[2019-06-01] MEDS: VITAMIN D PO SCH (08:05)
[2019-06-01] MEDS: MAGNESIUM GLUCONATE PO SCH (08:06)
[2019-06-01] MEDS: LACTULOSE PO SCH ×2 (08:06→08:10)
[2019-06-01] MEDS: LANTUS INSULIN SUBQ SCH (08:06)
[2019-06-01] MEDS: NEURONTIN PO SCH (08:06)
[2019-06-01 08:20] LABS: AGAP 9; ALB/GLOB RATIO 1.1; ALBUMIN 3.4 g/dL (3.5-5.0); ALKALINE PHOSPHATASE 59 U/L (32-122); BUN 12 mg/dL (8-22); CALCIUM 8.9 mg/dL (8.8-10.2); CHLORIDE 97 mmol/L (98-107); COSMO 270; CREATININE 0.8 mg/dL (0.7-1.2); ESTIMATED GFR > 60; GLUCOSE 195 mg/dL (70-104); GOT 49 U/L (10-34); GPT 45 U/L (10-44); POTASSIUM 4.1 mmol/L (3.5-5.1); SODIUM 132 mmol/L (136-145); TCO2 26 mmol/L (25-35); TOTAL BILIRUBIN 0.87 mg/dL (0.20-1.00); TOTAL PROTEIN 6.6 g/dL (6.3-8.3)
[2019-06-01 08:50] VITALS: BP 104/63
[2019-06-01] MEDS: DUONEB (A & A) INH PRN (10:10)
--- NOTE | 2019-06-01 10:58 | PROGRESS NOTE ---
DATE: 06/01/2019 SUBJECTIVE: The patient says that he feels fine and wants to go home. He had bleeding esophageal varices that have been banded. He also has COPD. He is on multiple medications; see medication list. From GI perspective, he can go home on his home medicines, and they wanted him on Cipro 500 mg p.o. b.i.d. for 3 days. I will get him a prescription for that. OBJECTIVE: Vital signs: Show blood pressure 104/63, respirations 18, pulse 58, temperature 97.6 degrees Fahrenheit. HEENT: Normocephalic. EOMS intact. PERRLA. Throat clear. Lungs: Clear to auscultation and percussion without rhonchi, rales or wheezes. Heart: Regular rate and rhythm without murmurs, gallops, friction rubs. Abdomen: Soft. Active bowel sounds. He is obese. Has some ascites. Neurologic: Exam intact grossly. PLAN: We will discharge home with the Cipro. He had been on some lactulose. He is having no problems at this time. cc: MD Aram Raya Jr, MD
--- NOTE | 2019-06-03 07:24 | DISCHARGE SUMMARY ---
ADMISSION DATE: 05/28/2019 DISCHARGE DATE: 06/01/2019 FINAL DISCHARGE DIAGNOSES: 1. Upper gastrointestinal bleed secondary to esophageal varices, cirrhosis of the liver, and portal hypertension. 2. Uncontrolled diabetes mellitus. 3. Morbid obesity. 4. Degenerative disk disease. 5. Chronic obstructive pulmonary disease. 6. History suggestive of hypertension. 7. Metabolic encephalopathy. HISTORY OF PRESENT ILLNESS: Mr. Friedman is a 59-year-old white gentleman, known case of cirrhosis of liver due to nonalcoholic steatohepatitis, admitted with hematemesis. The patient vomited a large amount of blood at home. Brought to emergency room. Admitted to ICU. We monitored the patient closely. Cattle Brander did upper GI endoscopy in the emergency room. The patient had a band ligation done of his varices. The patient's clinical condition stabilized and improved. The patient was treated with IV proton pump inhibitor and octreotide. Once his clinical condition stabilized, the patient was cleared by ppa teacher. We decided to discharge the patient home. His ammonia level was high. We advised the patient to continue taking lactulose, resume home medicine, follow up with me next week. Follow up with ppa teacher as scheduled. Last hemoglobin 14.2, hematocrit 42.1, WBC count 5.1, platelet count was 94. His ammonia level was 82. Sodium 132, potassium 4.1. Overall discharge condition satisfactory. Advised the patient to lose weight. Monitor Accu-Chek at home. GI soft diet, 1800-calorie ADA. Fall precaution. Follow up with ppa teacher as scheduled. Discharge medicine as per separate sheet. cc: Aram Stock MD
--- NOTE | 2019-06-06 08:13 | DISCHARGE SUMMARY ---
ADMISSION DATE: 05/28/2019 DISCHARGE DATE: 06/01/2019 ADDENDUM: Patient's presentation more consistent with history of metabolic encephalopathy in the past. The patient did not have a metabolic encephalopathy on presentation. cc: Aram Stock MD
== END 2019-06-01 11:14 | disposition home or self-care (01) | DRG 432 ==
LOC: ED 20:11 → SUATTDRO 05-28 00:36 → ICU 05-28 00:36 → 3N 05-30 22:47
PROVIDERS: ADMIT Internal Medicine; ATTEND Internal Medicine